=== PATIENT | female | born 1965 | race Native Hawaiian/Other Pacific Islander ===

== ENCOUNTER → 2020-02-04 14:43 | Outpatient (CLI) | payer OTHER, SELFPAY ==
--- NOTE | 2020-02-04 | DI.ECHO.S_ITS ---
[facility]---------+ [facility] +---------+ : : [address] : [place] : : : : [id number] : : : : Phone: [phone]+ Echocardiogram Report + + :Name: JANET JIMENEZ Study Date: 02/04/2020 Height: 60 in : :[facility] Weight: 143 lb : : Gender: Female BSA: 1.6 m2 : :: 1965 Age: 54 yrs BP: 158/74 mmHg: :Reason For Study: Cardiomegaly : :Ordering Physician: William Small : :Mimi Performed By: Kaitlyn Johansen : :Referring: WILLIAM LE : + + Interpretation Summary 1) Normal left ventricular size with hyperdynamic systolic function (EF 70- 75%). 2) Normal right ventricular size and function. 3) No significant valvular abnormalities. 4) No prior Echo available for comparison. Procedure: A two-dimensional transthoracic echocardiogram with color flow and Doppler was performed. The study quality was technically adequate. There is no prior echocardiogram noted for this patient. The patient was in normal sinus rhythm during the exam. The heart rate ranged between 70-85 bpm during the study. Left Ventricle: The left ventricle is normal in size. Left ventricular wall thickness is mildly increased. The ejection fraction is estimated to be 70- 75%. There are no focal wall motion abnormalities. Right Ventricle: The right ventricle is normal in size and function. Atria: The left atrial size is normal. Right atrial size is normal. The interatrial septum is intact with no evidence for an atrial septal defect. Mitral Valve: The mitral valve is normal in structure and function. Aortic Valve: The aortic valve is normal in structure and function. The aortic valve is trileaflet. The aortic valve opens well. No aortic regurgitation is present. Tricuspid Valve: The tricuspid valve is normal in structure and function. No tricuspid regurgitation. Pulmonary artery pressures cannot be estimated because of the lack of a measurable TR jet velocity but the IVC suggests a CVP of around 3 mmHg. Pulmonic Valve: The pulmonic valve is normal in structure and function. There is trace pulmonic regurgitation. Great Vessels: The aortic root is normal size. The dimensions of the ascending aorta are normal. The pulmonary artery is normal size. The IVC is of normal diameter and collapses greater than 50% with a sniff. This suggests a low right atrial pressure of 3 mm Hg. Pericardium/ Pleura There is no pericardial effusion. There is no pleural effusion. MMode/2D Measurements & Calculations LVIDd: 4.6 cm LVOT diam: 2.0 cm LVIDs: 2.6 cm Ao root diam: 3.4 cm FS: 43.8 % asc Aorta Diam: 3.3 cm IVSd: 1.2 cm Ao Arch Diam (Prox Trans): 2.6 cm LVPWd: 1.0 cm LV voss. diameter/BSA (cm/m^2): 2.9 LV sys. diameter/BSA (cm/m^2): 1.6 LA A2 area: 16.9 cm2 RA long axis: 3.6 cm LA A4 area: 13.7 cm2 RA area: 10.2 cm2 LA length (vol): 4.9 cm RA vol: 24.4 ml LA vol: 40.5 ml RA : 15.1 ml/m2 LA vol index: 25.0 ml/m2 IVC diam: 1.00 cm RVD1 (basal): 2.4 cm TAPSE: 2.0 cm Doppler Measurements & Calculations Ao V2 max: 177.3 cm/sec LVOT Max Nixon: 115.1 cm/sec Ao V2 mean: 115.9 cm/sec LV V1 max P.3 mmHg Ao max P.6 mmHg LV V1 VTI: 21.2 cm Ao mean P.1 mmHg YARELY(I,D): 2.4 cm2 Ao V2 VTI: 28.1 cm YARELY(V,D): 2.1 cm2 sev ratio: 0.76 YARELY indexed to BSA (cm^2/m^2): 1.5 MV E max nixon: 83.0 cm/sec PA V2 max: 92.2 cm/sec MV A max nixon: 120.1 cm/sec PA V2 mean: 60.6 cm/sec MV E/A: 0.69 PA mean P.7 mmHg Med Peak E' Nixon: 4.6 cm/sec E/E' med: 18.1 Lat Peak E' Nixon: 8.8 cm/sec E/E' lat: 9.4 E/e' average: 13.8 MV dec time: 0.38 sec MVA(VTI): 2.1 cm2 MV V2 mean: 88.7 cm/sec SV(LVOT): 67.5 ml MV mean P.4 mmHg MV V2 VTI: 31.7 cm Reading Physician:01:30 PM
== END ==
PROVIDERS: PCP Physician Assistant Medical; Referring Provider Internal Medicine Cardiovascular Disease; Visit Provider Internal Medicine Cardiovascular Disease
DX: I51.7 Cardiomegaly (principal)
CPT/HCPCS: 93306